=== PATIENT | female | born 1950 | race Caucasian/White ===

== ENCOUNTER → 2024-08-03 12:42 | Outpatient (CLI) | payer MEDICARE, SELFPAY ==
--- NOTE | 2024-08-03 12:43 | DI.ECHO.S_ITS ---
[place] [facility]+ [facility] : : [address] : : [place] : : [id number] : : Phone: [phone] Echocardiogram Report + + :Name: BLANCA TUTTLE Study Date: 08/03/2024 Height: 61 in : :[facility] ReadingLocation: Weight: 92 lb : : Gender: Female BSA: 1.4 m2 : :: 1950 Age: 74 yrs BP: 115/74 mmHg: :Reason For Study: COMBINED SYSTOLIC AND DIASTOLIC CONGESTIVE : :HEART FAILURE : :Ordering Physician: ESE, : :ALEA Performed By: Yonatan Balderrama : :Referring: ALEA MULLIGAN : + + Interpretation Summary Left ventricular systolic function is moderately reduced with an estimated ejection fraction of 40 to 45% with significant dyssynchrony and hypokinesis in the proximal to mid segments globally, particularly the proximal septum and inferior wall, but this pattern appears unchanged although overall contractility appears to be slightly less dynamic. Diastolic function is likely abnormal with elevated filling pressures, likely somewhat higher compared to the previous study. The right ventricle remains normal in size and systolic function is likely unchanged. Right ventricular systolic pressure is estimated at 40 mmHg with a CVP of 3 mmHg, and is likely higher compared to the previous exam. The left atrium is severely enlarged and measures significantly larger compared to the previous study. There is mild to moderate mitral and tricuspid regurgitation, both grossly unchanged from the previous exam. Mechanical aortic valve prosthesis appears to be functioning normally and is unchanged. There is moderate ascending aortic enlargement. Procedure: A two-dimensional transthoracic echocardiogram with color flow and Doppler was performed. The study quality was technically good. Comparison is made with the echocardiogram of 03/07/2023. The patient was in normal sinus rhythm during the exam. Left Ventricle: The left ventricle is normal in size. The estimated left ventricular end diastolic volume is 79 mL compared to the previous 64 ml. There is normal left ventricular wall thickness. There is no ventricular septal defect visualized. The ejection fraction is estimated to be 40-45%. Left ventricular systolic function is moderately reduced. There is significant hypokinesis in the proximal to mid segments globally, particularly in the proximal septum and inferior wall and a significant dyssynchronous contraction pattern but this appears unchanged from the previous study. Overall contractility appears unchanged to slightly less dynamic compared to the previous exam. Diastolic parameters suggest a pseudonormalization pattern, consistent with probable elevated filling pressures. This is likely higher compared to the previous study compared to the previous study. Right Ventricle: The right ventricle is normal in size and function. This is unchanged compared to the previous study. Atria: The left atrium is severely dilated. The left atrium has significantly increased in size since the prior echo exam. Right atrial size is normal. There is no Doppler evidence for an interatrial shunt. Mitral Valve: There is mild mitral annular calcification. The mitral valve leaflets appear mildly thickened, but open well. There is mild to moderate mitral regurgitation. This is unchanged compared to the previous study. Aortic Valve: There is a mechanical aortic valve. The prosthetic aortic valve is well-seated. The gradients through the prosthetic aortic valve are within the normal range for this type of valve. The peak aortic velocity is 2.1 m/sec. The aortic valve mean gradient is 9 mmHg. This is grossly unchanged compared to the previous study. There is trace aortic regurgitation. Tricuspid Valve: The tricuspid valve leaflets are thin and pliable. There is mild to moderate tricuspid regurgitation. The right ventricular systolic pressure is estimated to be at least 40 mmHg based on an estimated right atrial pressure of 3 mm Hg. This is likely unchanged compared to the previous study. Pulmonic Valve: The pulmonic valve leaflets are thin and pliable; valve motion is normal. There is trace pulmonic regurgitation. Great Vessels: The aortic root is normal size. The ascending aorta is moderately enlarged. The pulmonary artery is normal size. The IVC is of normal diameter and collapses greater than 50% with a sniff. This suggests a low right atrial pressure of 3 mm Hg. Pericardium/ Pleura There is no pericardial effusion. There is no pleural effusion. MMode/2D Measurements & Calculations LVIDd: 4.5 cm LVOT diam: 1.6 cm LVIDs: 3.8 cm Ao root diam: 3.3 cm FS: 15.0 % asc Aorta Diam: 4.2 cm EPSS: 1.7 cm IVSd: 0.71 cm LVPWd: 1.0 cm LV johnson. diameter/BSA (cm/m^2): 3.3 LV sys. diameter/BSA (cm/m^2): 2.8 LA A2 area: 25.5 cm2 RA long axis: 5.0 cm LA A4 area: 20.7 cm2 RA area: 14.2 cm2 LA length (vol): 5.1 cm RA vol: 33.9 ml LA vol: 88.5 ml RA : 25.0 ml/m2 LA vol index: 65.2 ml/m2 IVC diam: 1.6 cm RVD1 (basal): 2.7 cm RVD2 (mid): 1.7 cm Doppler Measurements & Calculations Ao V2 max: 206.3 cm/sec LVOT Max Raphael: 55.8 cm/sec Ao V2 mean: 141.5 cm/sec LV V1 max P.2 mmHg Ao max P.0 mmHg LV V1 VTI: 12.1 cm Ao mean P.1 mmHg REMY(I,D): 0.53 cm2 Ao V2 VTI: 44.2 cm REMY(V,D): 0.52 cm2 sev ratio: 0.28 REMY indexed to BSA (cm^2/m^2): 0.39 MV E max raphael: 130.5 cm/sec TR max raphael: 307.0 cm/sec MV A max raphael: 96.4 cm/sec TR max P.7 mmHg MV E/A: 1.4 PA V2 max: 69.7 cm/sec Med Peak E' Raphael: 3.6 cm/sec PA V2 mean: 54.0 cm/sec E/E' med: 36.7 PA mean P.2 mmHg Lat Peak E' Raphael: 6.1 cm/sec PA pr(Accel): 32.8 mmHg E/E' lat: 21.5 E/e' average: 29.1 MV dec time: 0.25 sec MVA(VTI): 0.61 cm2 MR ERO: 0.23 cm2 MV V2 mean: 82.5 cm/sec MR PISA: 3.8 cm2 MV mean P.1 mmHg MR flow rate: 140.2 cm3/sec MV V2 VTI: 38.0 cm MR PISA radius: 0.78 cm SV(LVOT): 23.4 ml Reading Physician:09:30 AM
== END ==
PROVIDERS: Referring Provider Specialist; Visit Provider Specialist
DX: I08.1 Rheumatic disorders of both mitral and tricuspid valves (principal); I50.40 Unspecified combined systolic (congestive) and diastolic (congestive) heart failure; I77.89 Other specified disorders of arteries and arterioles; Z95.3 Presence of xenogenic heart valve
CPT/HCPCS: 93306